=== PATIENT | male | born 1980 | race Caucasian/White ===

== ENCOUNTER 2017-03-23 21:23 | Emergency (ER) | payer SELFPAY ==
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
[2017-03-24 00:54] VITALS: BP 145/84
--- NOTE | 2017-03-24 07:06 | RAD ---
INDICATION: Left lower leg pain status post surgical repair. COMPARISON: There are no prior studies available for comparison. TECHNIQUE: 2 views of the left lower leg were obtained. FINDINGS: The patient appears to be status post operative reduction and internal fixation of a fracture of the proximal diaphysis of the tibia. There is an intramedullary vince spanning the tibia transfixed with 2 surgical screws proximally and distally. There is mild deformity of the proximal diaphysis of the tibia with prominent cortical thickening most consistent with a healed fracture. There appears to be mild anterior soft tissue swelling. IMPRESSION: STATUS POST OPERATIVE REDUCTION AND INTERNAL FIXATION OF A FRACTURE OF THE PROXIMAL TIBIA WHICH APPEARS HEALED. IF THERE IS CONCERN FOR INFECTION CONSIDER ORTHOPEDIC CONSULTATION AND CT IMAGING FOR FURTHER EVALUATION.
== END 2017-03-24 01:02 | disposition home or self-care (01) ==
LOC: ED 21:23
DX: M79.662 Pain in left lower leg (principal); Z88.0 Allergy status to penicillin; Z88.2 Allergy status to sulfonamides; F17.200 Nicotine dependence, unspecified, uncomplicated
CPT/HCPCS: 99282